=== PATIENT | female | born 1950 | race Hispanic/Latino ===

== ENCOUNTER → 2020-05-30 | Outpatient (CLI) | payer OTHER | END | disposition home or self-care (01) | LOC: RAH 13:52 | PROVIDERS: ATTEND Family Medicine | DX: M47.817 Spondylosis without myelopathy or radiculopathy, lumbosacral region (principal); M48.07 Spinal stenosis, lumbosacral region; M41.86 Other forms of scoliosis, lumbar region; M79.671 Pain in right foot; M54.42 Lumbago with sciatica, left side; M51.26 Other intervertebral disc displacement, lumbar region | CPT/HCPCS: 72148 ==

== ENCOUNTER → 2024-01-20 | Outpatient (CLI) | payer OTHER | END | disposition home or self-care (01) | LOC: RAH 13:50 | PROVIDERS: ATTEND Family Medicine | DX: I83.893 Varicose veins of bilateral lower extremities with other complications (principal); R25.2 Cramp and spasm | CPT/HCPCS: 93925; 93970 ==

== ENCOUNTER 2024-04-30 13:22 | Emergency (ER) | payer OTHER ==
[~2024-04-30] VITALS: Ht 157.5 cm; Wt 68.9 kg
[2024-04-30 13:24] VITALS: BP 132/80; PULSE 69; RESP 18; TEMP 97.1
[2024-04-30] MEDS: ketOROlac 15MG/ML VIAL (15MG/ML) IM STA (14:42)
[2024-04-30] MEDS: acetaMINOPHEN 325 MG TAB PO STA (14:43)
== END 2024-04-30 15:16 | disposition home or self-care (01) ==
LOC: EDH 13:22
DX: M54.59 Other low back pain (principal); E11.9 Type 2 diabetes mellitus without complications; W18.39XA Other fall on same level, initial encounter; Y93.01 Activity, walking, marching and hiking; Y92.89 Other specified places as the place of occurrence of the external cause; Y99.8 Other external cause status
CPT/HCPCS: 99283; 72170; 96372; J1885

== ENCOUNTER → 2024-05-08 | Outpatient (CLI) | payer OTHER ==
--- NOTE | 2024-05-08 12:01 | HMCIMG ---
CERV SPINE 2-3VWS HISTORY: Neck pain COMPARISON: None FINDINGS: 3 images of cervical spine were obtained. There are degenerative changes with cervical spine spondylosis. Disc space narrowing are seen at C4-5, C5-6 and C6-7 levels. There is straightening of normal lordotic curvature which may be related to muscle spasm or positioning. No loss of vertebral height is seen. No fracture or dislocation is seen. Degenerative changes are seen. IMPRESSION: 1. No fracture is seen. DJD with cervical spine spondylosis.
== END | disposition home or self-care (01) ==
LOC: RAH 11:21
PROVIDERS: ATTEND Family Medicine
DX: M47.812 Spondylosis without myelopathy or radiculopathy, cervical region (principal)
CPT/HCPCS: 72040